=== PATIENT | male | born 1965 | race Caucasian/White ===

== ENCOUNTER 2017-01-06 01:01 | Inpatient (IN) | payer MEDICAID ==
[2017-01-06] MEDS ORDERED: Ketorolac 30 MG/ML SDV IVPUSH ONE (01:05)
[2017-01-06] MEDS ORDERED: Ondansetron 4 MG/2 ML SDV IVPUSH ONE ×2 (01:05→01:41)
[2017-01-06] MEDS ORDERED: Sodium Chloride 0.9% 1,000 ML IV ONE (01:05)
--- NOTE | 2017-01-06 01:07 | EDM.PDOC ---
ED HPI GENERAL MEDICAL PROBLEM - General Chief Complaint: Abdominal Pain Stated Complaint: STOMACH PAIN Time Seen by Provider: 01/06/17 01:07 Source of Information: Reports: Patient - History of Present Illness INITIAL COMMENTS - FREE TEXT/NARRATIVE: HISTORY AND PHYSICAL: History of present illness: [] Patient presents with left lower quadrant pain 8/10 nonradiating Has a history of diverticulitis with microperforation is been treated with a couple of regimens of Bactrim and Flagyl over the last month and has been awaiting colonoscopy, this has not been performed due to the inflammatory process No fever or nausea vomiting or chills sweats Review of systems: As per history of present illness and below otherwise all systems reviewed and negative. Past medical history: As per history of present illness and as reviewed below otherwise noncontributory. Surgical history: As per history of present illness and as reviewed below otherwise noncontributory. Social history: No reported history of drug or alcohol abuse. Family history: As per history of present illness and as reviewed below otherwise noncontributory. Physical exam: HEENT: Atraumatic, normocephalic, pupils reactive, negative for conjunctival pallor or scleral icterus, mucous membranes moist, throat clear, neck supple, nontender, trachea midline. Lungs: Clear to auscultation, breath sounds equal bilaterally, chest nontender. Heart: S1S2, regular, negative for clicks, rubs, or JVD. Abdomen: Soft, nondistended, nontender upper quadrants tenderness to light palpation right and left lower quadrants with guarding no rebound. Negative for masses or hepatosplenomegaly. Negative for costovertebral tenderness. Pelvis: Stable nontender. Genitourinary: Deferred. Rectal: Deferred. Extremities: Atraumatic, negative for cords or calf pain. Neurovascular unremarkable. Neuro: Awake, alert, oriented. Cranial nerves II through XII unremarkable. Cerebellum unremarkable. Motor and sensory unremarkable throughout. Exam nonfocal. Diagnostics: [] Lab as below EKG CT abdomen pelvis with and without contrast Therapeutics: [] Liter normal saline bolus Zofran 8 mg IV Toradol 30 mg IV Morphine 2 mg IV x2 Dilaudid 1 mg IV now Cipro 400 mg IV Normal saline 125 cc per hour Impression: [] Diverticulitis versus inflammatory mass Abdominal pain Leukocytosis Definitive disposition and diagnosis as appropriate pending reevaluation and review of above. ABDOMEN Pain Score (Numeric/FACES): 10 - Related Data Allergies Allergy/AdvReac Type Severity Reaction Status Date / Time No Known Allergies Allergy Verified 01/06/17 01:07 Home Meds: Home Meds LORazepam 1 mg PO BID PRN 01/06/17 [History] Metronidazole [IJD: metroNIDAZOLE] 500 mg PO TID 01/06/17 [History] Sulfamethoxazole/Trimethoprim [Sulfamethoxazole-Tmp Ds Tablet] 1 tab PO BID [History] ED ROS GENERAL - Review of Systems Review Of Systems: ROS reveals no pertinent complaints other than HPI. ED EXAM, GENERAL - Physical Exam Exam: See Below Course - Vital Signs Last Recorded V/S: Last Vital Signs Temp 35.5 C 01/06/17 01:09 Pulse 87 01/06/17 03:01 Resp 17 01/06/17 03:01 BP 124/72 01/06/17 03:01 Pulse Ox 96 01/06/17 03:01 - Orders/Labs/Meds Orders: Active Orders 24 hr Category Date Time Status EKG Documentation Completion [RC] STAT Care 01/06/17 01:05 Active Abdomen Pelvis w wo Cont [CT] Stat Exams 01/06/17 01:06 Taken Abdomen w Cont [CT] Stat Exams 01/06/17 01:05 Stop Req CULTURE BLOOD [BC] Stat Lab 01/06/17 01:32 Received CULTURE BLOOD [BC] Stat Lab 01/06/17 01:36 Received UA W/MICROSCOPIC [URIN] Stat Lab 01/06/17 01:05 Uncollected HYDROmorphone [Dilaudid] Med 01/06/17 03:06 Once 1 mg IVPUSH ONETIME ONE Sodium Chloride 0.9% [Normal Saline] 1,000 ml Med 01/06/17 03:15 Ordered IV STAT Blood Culture x2 Reflex Set [OM.PC] Stat Oth 01/06/17 01:23 Ordered Medication Orders Sodium Chloride (Normal Saline) 1,000 mls @ 125 mls/hr IV STAT ELEAZAR Labs: Laboratory Tests 01/06/17 01/06/17 01/06/17 Range/Units 01:15 01:15 01:15 WBC 13.66 H (4.0-11.0) K/uL RBC 4.93 (4.50-5.90) M/uL Hgb 15.4 (13.0-17.0) g/dL Hct 43.5 (38.0-50.0) % MCV 88.2 (80.0-98.0) fL MCH 31.2 (27.0-32.0) pg MCHC 35.4 (31.0-37.0) g/dL RDW Std Deviation 43.8 (28.0-62.0) fl RDW Coeff of Omar 14 (11.0-15.0) % Plt Count 170 (150-400) K/uL MPV 10.40 (7.40-12.00) fL Neut % (Auto) 75.5 (48.0-80.0) % Lymph % (Auto) 15.4 L (16.0-40.0) % [place] % (Auto) 8.8 (0.0-15.0) % Eos % (Auto) 0.1 (0.0-7.0) % Baso % (Auto) 0.2 (0.0-1.5) % Neut # (Auto) 10.3 H (1.4-5.7) K/uL Lymph # (Auto) 2.1 (0.6-2.4) K/uL [place] # (Auto) 1.2 H (0.0-0.8) K/uL Eos # (Auto) 0.0 (0.0-0.7) K/uL Baso # (Auto) 0.0 (0.0-0.1) K/uL Nucleated RBC % 0.0 /100WBC Nucleated RBCs # 0 K/uL Sodium 136 (136-146) mmol/L Potassium 4.1 (3.5-5.1) mmol/L Chloride 104 (98-110) mmol/L Carbon Dioxide 18 L (21-31) mmol/L BUN 15 (6.0-23.0) mg/dL Creatinine 1.4 (0.6-1.5) mg/dL Est Cr Clr Drug Dosing 70.55 mL/min Estimated GFR (MDRD) 53.4 ml/min Glucose 120 H (60-110) mg/dL Calcium 9.8 (8.8-10.8) mg/dL Total Bilirubin 0.9 (0.1-1.5) mg/dL AST 30 (5-40) IU/L ALT 24 (8-54) IU/L Alkaline Phosphatase 108 (40-150) Troponin I < 0.10 (0.0-0.29) NG/ML Total Protein 7.9 (6.0-8.0) g/dL Albumin 4.4 (3.5-5.0) g/dL Globulin 3.5 (2.0-3.5) g/dL Albumin/Globulin Ratio 1.3 (1.3-2.8) Amylase 21 (10-90) U/L Lipase 18 (7-80) U/L Meds: Medications Generic Name Dose Route Start Last Admin Trade Name Freq PRN Reason Stop Dose Admin Sodium Chloride 1,000 mls @ 125 mls/hr 01/06/17 03:15 Normal Saline IV STAT ELEAZAR Discontinued Medications Generic Name Dose Route Start Last Admin Trade Name Freq PRN Reason Stop Dose Admin Sodium Chloride 1,000 mls @ 999 mls/hr 01/06/17 01:05 01/06/17 01:39 Normal Saline IV 01/06/17 02:05 999 mls/hr STAT ONE Administration Ketorolac Tromethamine 30 mg 01/06/17 01:05 01/06/17 03:02 Toradol IVPUSH 01/06/17 01:06 Not Given ONETIME ONE Morphine Sulfate 2 mg 01/06/17 01:12 01/06/17 01:40 Morphine IVPUSH 01/06/17 01:13 2 mg ONETIME ONE Administration Morphine Sulfate 2 mg 01/06/17 02:38 01/06/17 02:42 Morphine IVPUSH 01/06/17 02:39 2 mg ONETIME ONE Administration Ondansetron HCl 8 mg 01/06/17 01:05 01/06/17 03:02 Zofran IVPUSH 01/06/17 01:06 Not Given ONETIME ONE Ondansetron HCl 8 mg 01/06/17 01:41 01/06/17 01:42 Zofran IVPUSH 01/06/17 01:42 8 mg STAT ONE Administration Departure - Departure Time of Disposition: 03:10 Disposition: Home, Self-Care 01 Condition: poor Clinical Impression: Abdominal pain - Discharge Information Forms: ED Department Discharge - My Orders Last 24 Hours: My Active Orders 01/06/17 01:05 EKG Documentation Completion [RC] STAT Abdomen w Cont [CT] Stat UA W/MICROSCOPIC [URIN] Stat 01/06/17 01:06 Abdomen Pelvis w wo Cont [CT] Stat 01/06/17 01:23 Blood Culture x2 Reflex Set [OM.PC] Stat 01/06/17 01:32 CULTURE BLOOD [BC] Stat 01/06/17 01:36 CULTURE BLOOD [BC] Stat 01/06/17 03:06 HYDROmorphone [Dilaudid] 1 mg IVPUSH ONETIME ONE 01/06/17 03:15 Sodium Chloride 0.9% [Normal Saline] 1,000 ml IV STAT - Assessment/Plan Last 24 Hours: My Active Orders 01/06/17 01:05 EKG Documentation Completion [RC] STAT Abdomen w Cont [CT] Stat UA W/MICROSCOPIC [URIN] Stat 01/06/17 01:06 Abdomen Pelvis w wo Cont [CT] Stat 01/06/17 01:23 Blood Culture x2 Reflex Set [OM.PC] Stat 01/06/17 01:32 CULTURE BLOOD [BC] Stat 01/06/17 01:36 CULTURE BLOOD [BC] Stat 01/06/17 03:06 HYDROmorphone [Dilaudid] 1 mg IVPUSH ONETIME ONE 01/06/17 03:15 Sodium Chloride 0.9% [Normal Saline] 1,000 ml IV STAT
[2017-01-06] MEDS ORDERED: Morphine 2 MG/ML Syringe IVPUSH ONE ×2 (01:12→02:38)
[2017-01-06] MEDS ORDERED: HYDROmorphone 2 MG/ML Syringe IVPUSH ONE (03:06)
[2017-01-06] MEDS ORDERED: Sodium Chloride 0.9% 1,000 ML IV SCH (03:15)
[2017-01-06] MEDS ORDERED: Ciprofloxacin in D5W 400 MG in Premix Bag 1 BAG IV STA ×2 (03:16)
[2017-01-06] MEDS ORDERED: Ondansetron 4 MG/2 ML SDV IVPUSH PRN (03:48)
[2017-01-06] MEDS ORDERED: Morphine 2 MG/ML Syringe IVPUSH PRN (03:48)
[2017-01-06] MEDS ORDERED: LORazepam 1 MG Tab PO PRN (03:56)
[2017-01-06] MEDS: Piperacillin/Tazobactam 3.375 GM in Sodium Chloride 0.9% 50 ML IV SCH ×4 (05:03→21:50)
[2017-01-06] MEDS ORDERED: Iopamidol 755 MG/ML 500 ML Multipack Bottle IVPUSH STA (06:36)
[2017-01-06] MEDS: HYDROmorphone 1 MG/ML Syringe IVPUSH PRN ×9 (07:25→23:55)
--- NOTE | 2017-01-06 08:29 | PCM.HP ---
H&P History of Present Illness - General Date of Service: 01/06/17 Admit Problem/Dx: Admission Diagnosis/Problem Admission Diagnosis/Problem Abdominal pain Source of Information: Patient History Limitations: Reports: No Limitations - History of Present Illness Initial Comments - Free Text/Narative: This 51 year old male with pmh of diverticulosis, diagnosed a couple years ago presented to the ED with severe abdominal pain that has been going on for about 1 month, but has since progressively worsened over the last 1-2 days. He reports being treated for diverticulitis with Bactrim and Flagyl over the last 2 weeks, with no complete recovery. Since diagnosis 2 years ago he has had about 1/2 dozen flares some with perforations. He has never had a colonscopy and has been seeing a surgeon at home in [place], they will not do one until inflammation and acute diverticulitis has resolved. He reports being more constipated feeling, last BM 2 days ago. There has been blood in is stools. No N /V, but 7/10 pain to LLQ. He feels bloated and distended. Not eating helps the pain somewhat, but otherwise there is no relieving factors. He does not smoke, but chews 1/2 tin of chew daily, rare alcohol use and no recreational drug use. He denies any family history of colon cancers or any cancer he can think of. In the ED leukocytosis noted at 13,660. BMP WNL, except BS slightly elevated at 130s. CT of abdomen reported "circumferential thickening and pericolonic strading of the sigmoid colon, may represent diverticulitis, howevere, additional etiologis for coloitis or inflammatory mass or not excluded from this study, mild adjacent lymphadenopathy is present" Radiologist recommends endoscopy with clinically appropriate. He was placed on Zosyn and admitted for acute sigmoid diverticulitis. PCP in [place]. ABDOMEN Pain Score (Numeric/FACES): 10 - Related Data Allergies/Adverse Reactions: Allergies Allergy/AdvReac Type Severity Reaction Status Date / Time No Known Allergies Allergy Verified 01/06/17 01:07 Home Medications: Home Meds LORazepam 1 mg PO BID PRN 01/06/17 [History] Metronidazole [IJD: metroNIDAZOLE] 500 mg PO TID 01/06/17 [History] Sulfamethoxazole/Trimethoprim [Sulfamethoxazole-Tmp Ds Tablet] 1 tab PO BID [History] Past Medical History - Past Health History Medical/Surgical History: Denies Medical/Surgical History HEENT History: Reports: Impaired Vision Other HEENT History: wears glasses Cardiovascular History: Reports: None. Denies: Blood Clots/VTE/DVT, CAD, Heart Failure, High Cholesterol, Hypertension, NM Respiratory History: Reports: None. Denies: COPD, PE Gastrointestinal History: Reports: Diverticulosis, Hiatal Hernia, Other (See Below) Other Gastrointestinal History: Hx of 2 perforations in colon Genitourinary History: Reports: None. Denies: Acute Renal Failure, Chronic Renal Insuffiency Psychiatric History: Reports: Anxiety Endocrine/Metabolic History: Reports: None. Denies: Diabetes, Type II, Hypothyroidism, Obesity/BMI 30+ - Past Surgical History HEENT Surgical History: Reports: None GI Surgical History: Reports: None Social & Family History - Family History Family Medical History: Noncontributory GI: Denies: Diverticulitis, GI bleed Oncologic: Reports: None. Denies: Colon - Tobacco Use Smoking Status *Q: Never Smoker Second Hand Smoke Exposure: Yes - Caffeine Use Caffeine Use: Reports: Coffee Other Caffeine Use: Decaff. coffee 1-2 cups/day - Recreational Drug Use Recreational Drug Use: No H&P Review of Systems - Review of Systems: Review Of Systems: See Below HEENT: Reports: No Symptoms. Denies: Headaches, Sinus Congestion, Sore Throat, Visual Changes Pulmonary: Reports: No Symptoms. Denies: Shortness of Breath, Wheezing, Cough, Sputum Cardiovascular: Reports: No Symptoms. Denies: Chest Pain, Palpitations, Dyspnea on Exertion, Edema Gastrointestinal: Reports: Abdominal Pain (LLQ), Bloody Stool, Constipation, Distension, Nausea. Denies: Vomiting Genitourinary: Reports: No Symptoms. Denies: Dysuria, Frequency, Burning, Incontinence, Retention Musculoskeletal: Reports: No Symptoms Skin: Reports: No Symptoms Psychiatric: Reports: No Symptoms Neurological: Reports: No Symptoms Hematologic/Lymphatic: Reports: No Symptoms Immunologic: Reports: No Symptoms Exam - Exam Exam: See Below - Vital Signs Vital Signs: Last Vital Signs Temp 98 F 01/06/17 04:00 Pulse 93 01/06/17 04:00 Resp 18 01/06/17 04:00 BP 120/75 01/06/17 04:00 Pulse Ox 94 L 01/06/17 04:00 Weight: 89.4 kg - Exam Quality Assessment: DVT Prophylaxis. No: Supplemental Oxygen General: Alert, Oriented, Cooperative HEENT: Mucosa Moist & [place], Posterior Pharynx Clear Neck: Supple, Trachea Midline, 2 Lungs: Clear to Auscultation, Normal Respiratory Effort Cardiovascular: Regular Rate, Regular Rhythm Abdomen: Normal Bowel Sounds, Soft, Distention, Tenderness (Pain to LLQ with palpation) Extremities: Normal Inspection, Normal Pulses Neuro Extensive - Mental Status: Alert, Oriented x3 Neuro Extensive - Motor, Sensory, Reflexes: CN II-XII Intact Psychiatric: Alert, Normal Affect, Normal Mood - Patient Data Lab Results last 24 hrs: Laboratory Results - last 24 hr 01/06/17 01/06/17 01/06/17 Range/Units 04:27 04:27 04:30 WBC 9.64 (4.0-11.0) K/uL RBC 4.47 L (4.50-5.90) M/uL Hgb 13.7 (13.0-17.0) g/dL Hct 40.0 (38.0-50.0) % MCV 89.5 (80.0-98.0) fL MCH 30.6 (27.0-32.0) pg MCHC 34.3 (31.0-37.0) g/dL RDW Std Deviation 44.3 (28.0-62.0) fl RDW Coeff of Omar 14 (11.0-15.0) % Plt Count 145 L (150-400) K/uL MPV 10.50 (7.40-12.00) fL Neut % (Auto) 71.0 (48.0-80.0) % Lymph % (Auto) 19.3 (16.0-40.0) % [place] % (Auto) 9.0 (0.0-15.0) % Eos % (Auto) 0.4 (0.0-7.0) % Baso % (Auto) 0.3 (0.0-1.5) % Neut # (Auto) 6.8 H (1.4-5.7) K/uL Lymph # (Auto) 1.9 (0.6-2.4) K/uL [place] # (Auto) 0.9 H (0.0-0.8) K/uL Eos # (Auto) 0.0 (0.0-0.7) K/uL Baso # (Auto) 0.0 (0.0-0.1) K/uL Nucleated RBC % 0.0 /100WBC Nucleated RBCs # 0 K/uL Sodium 138 (136-146) mmol/L Potassium 4.0 (3.5-5.1) mmol/L Chloride 106 (98-110) mmol/L Carbon Dioxide 21 (21-31) mmol/L BUN 15 (6.0-23.0) mg/dL Creatinine 1.4 (0.6-1.5) mg/dL Est Cr Clr Drug Dosing 70.55 mL/min Estimated GFR (MDRD) 53.4 ml/min Glucose 138 H (60-110) mg/dL Calcium 8.5 L (8.8-10.8) mg/dL Urine Color YELLOW Urine Appearance CLEAR Urine pH 5.5 (5.0-8.0) Ur Specific [place] 1.010 (1.001-1.035) Urine Protein NEGATIVE (NEGATIVE) mg/dL Urine Glucose (UA) NEGATIVE (NEGATIVE) mg/dL Urine Ketones 15 H (NEGATIVE) mg/dL Urine Occult Blood NEGATIVE (NEGATIVE) Urine Nitrite NEGATIVE (NEGATIVE) Urine Bilirubin NEGATIVE (NEGATIVE) Urine Urobilinogen 0.2 (<2.0) EU/dL Ur Leukocyte Esterase NEGATIVE (NEGATIVE) Urine RBC 0-1 (0-2/HPF) Urine WBC NONE SEEN (0-5/HPF) Ur Epithelial Cells FEW (NONE-FEW) Urine Bacteria FEW (NEGATIVE) Result Diagrams: 01/06/17 04:27 01/06/17 04:27 *Q Meaningful Use (ADM) - VTE *Q VTE Criteria *Q: - Stroke *Q Stroke Criteria *Q: - AMI *Q AMI Criteria *Q: - Problem List (1) Diverticulitis SNOMED Code(s): 473987426 ICD Code: K57.92 - DVTRCLI OF INTEST, PART UNSP, W/O PERF OR ABSCESS W/O BLEED Status: Acute Current Visit: Yes Qualifiers: Diverticulitis site: large intestine Diverticulitis bleeding: with bleeding Diverticulitis complication: without perforation or abscess Qualified Code(s): K57.33 - Diverticulitis of large intestine without perforation or abscess with bleeding Problem List Initiated/Reviewed/Updated: Yes Orders Last 24hrs: Active Orders 24 hr Category Date Time Status Nothing per Oral Now Diet [DIET] Diet 01/06/17 Breakfast Active HYDROmorphone [Dilaudid] Med 01/06/17 05:33 Active 1 mg IVPUSH Q2H PRN LORazepam [Ativan] Med 01/06/17 03:56 Active 1 mg PO BID PRN Ondansetron [Zofran] Med 01/06/17 03:48 Active 4 mg IVPUSH Q4H PRN Piperacillin/Tazobactam [Piperacil-Tazobact] 3.375 gm Med 01/06/17 04:00 Active Sodium Chloride 0.9% [Normal Saline] 50 ml IV Q6H Sodium Chloride 0.9% [Normal Saline] 1,000 ml Med 01/06/17 04:00 Active IV ASDIRECTED Medication Orders Hydromorphone HCl (Dilaudid) 1 mg IVPUSH Q2H PRN PRN Reason: Abdominal Pain Last Admin: 01/06/17 07:25 Dose: 1 mg Piperacillin Sod/Tazobactam (Sod 3.375 gm/ Sodium Chloride) 50 mls @ 100 mls/ hr IV Q6H ELEAZAR Last Admin: 01/06/17 05:03 Dose: 100 mls/hr Sodium Chloride (Normal Saline) 1,000 mls @ 125 mls/hr IV ASDIRECTED ELEAZAR Lorazepam (Ativan) 1 mg PO BID PRN PRN Reason: Anxiety Ondansetron HCl (Zofran) 4 mg IVPUSH Q4H PRN PRN Reason: Nausea/Vomiting Assessment/Plan Comment:: This 51 year old male admitted with recurrent diverticulitis 1. Acute sigmoid diverticulitis: Continue Zosyn for now, has failed outpatient for past couple months on Flagyl and Bactrim. Consult Dr. Najera, general surgery. Will order stool studies and hemoccult. He does report blood in stools at home. Continue bowel rest and IVFDs. Monitor Leukocytosis. Dilaudid for pain PRN. Zofran PRN nausea. Will need to arrange outpatient follow up with colonoscopy. VTE prophylaxis: SCDs only
[2017-01-06] MEDS: Sodium Chloride 0.9% 1,000 ML IV SCH ×2 (12:29→21:02)
--- NOTE | 2017-01-06 13:10 | CT ---
EXAM DATE: 01/06/17 PATIENT'S AGE: 51 Patient: FRANKY BE Facility: [place], [place] Site . Site : [id number] Study: CT Abdomen/Pelvis [id number]/26/2017 2:17:23 AM Ordering Physician: Doctor Presley Final Report: INDICATION: Abdominal pain. History of colon perforation 3 weeks ago. TECHNIQUE: CT abdomen and pelvis acquired without and with 75 mL of Isovue 370 IV contrast. COMPARISON: None available. FINDINGS: Lower chest: Unremarkable. Liver: Unremarkable. Spleen: Unremarkable. Pancreas: Unremarkable. Gallbladder and bile ducts: Unremarkable. Kidneys: Unremarkable. Adrenal glands: Unremarkable. GI tract: There is circumferential thickening and pericolonic stranding involving the sigmoid colon, for example as seen on axial image 122 of series 301. Mild adjacent lymph nodes, for example as seen on image 108. Mild sigmoid diverticula are likely present but not well defined. Trace pelvic free fluid. No evidence of abscess. No free intraperitoneal gas. No bowel obstruction. Normal appendix. Vascular structures: Unremarkable. Lymph nodes: Unremarkable. Pelvic Organs: Unremarkable. Bones: No acute abnormality. IMPRESSION: Circumferential thickening and pericolonic stranding of the sigmoid colon may represent diverticulitis, however, additional etiologies for colitis or inflammatory mass are not excluded on the basis of this study. Mild adjacent lymphadenopathy is present. Further evaluation with endoscopy is recommended when clinically appropriate. Small amount of pelvic free fluid. No evidence of abscess or perforation. Dictated by Thad Sánchez MD @ 01/06/2017 2:38:58 AM Dictated by: Thad Sánchez MD @ 01/06/2017 02:39:35 (Electronic Signature) Report Signed by Proxy. [facility] CENTERMehdi
--- NOTE | 2017-01-06 18:27 | PCM.CONS ---
H&P History of Present Illness - General Date of Service: 01/06/17 Admit Problem/Dx: Admission Diagnosis/Problem Admission Diagnosis/Problem Abdominal pain Source of Information: Patient History Limitations: Reports: No Limitations - History of Present Illness Initial Comments - Free Text/Narative: Patient is a 51 year old male with a history of diverticulitis. This has been a chronic issue for him for the past 2 years. He has been on care home antibiotics (Bactrim and flagyl) and a special low residue diet. He is currently being managed by s surgeon in [place]. He came to [place] this weekend to visit his MRIs. He a cheeseburger after which she developed sharp severe lower abdominal pain worse than he had experienced before. He was seen in emergency room and had a CT performed which showed "Circumferential thickening and pericolonic stranding of the sigmoid colon may represent diverticulitis, however, additional etiologies for colitis or inflammatory mass are not excluded on the basis of this study. Mild adjacent lymphadenopathy is present. Further evaluation with endoscopy is recommended when clinically appropriate. Small amount of pelvic free fluid. No evidence of abscess or perforation." The patient has never had a colonoscopy because he gets recurrent attacks. He was admitted to the hospitalist team and started on Zosyn. His pain is mainly located in the suprapubic region. It is control room tender but is not getting worse. He complains of fever, chills, and diaphoresis. He denies any nausea or vomiting. He's been more constipated over the last several days. Denies denies any blood in his stool. His white count on admission was 13,000 and on recheck has come down to and 9000. His vitals have been stable throughout the day with no evidence of fever. ABDOMEN Pain Score (Numeric/FACES): 10 - Related Data Allergies/Adverse Reactions: Allergies Allergy/AdvReac Type Severity Reaction Status Date / Time No Known Allergies Allergy Verified 01/06/17 01:07 Home Medications: Home Meds LORazepam 1 mg PO BID PRN 01/06/17 [History] Metronidazole [IJD: metroNIDAZOLE] 500 mg PO TID 01/06/17 [History] Sulfamethoxazole/Trimethoprim [Sulfamethoxazole-Tmp Ds Tablet] 1 tab PO BID [History] Past Medical History - Past Health History Medical/Surgical History: Denies Medical/Surgical History HEENT History: Reports: Impaired Vision Other HEENT History: wears glasses Cardiovascular History: Reports: None. Denies: Blood Clots/VTE/DVT, CAD, Heart Failure, High Cholesterol, Hypertension, HI Respiratory History: Reports: None. Denies: COPD, PE Gastrointestinal History: Reports: Diverticulosis, Hiatal Hernia, Other (See Below) Other Gastrointestinal History: Hx of 2 perforations in colon Genitourinary History: Reports: None. Denies: Acute Renal Failure, Chronic Renal Insuffiency Psychiatric History: Reports: Anxiety Endocrine/Metabolic History: Reports: None. Denies: Diabetes, Type II, Hypothyroidism, Obesity/BMI 30+ - Past Surgical History HEENT Surgical History: Reports: None GI Surgical History: Reports: None Other Surgical History Comment: Carpal tunnel, scope of the knee, EGD Social & Family History - Family History Family Medical History: Noncontributory GI: Denies: Diverticulitis, GI bleed Oncologic: Reports: None. Denies: Colon - Tobacco Use Smoking Status *Q: Never Smoker Second Hand Smoke Exposure: Yes - Caffeine Use Caffeine Use: Reports: Coffee Other Caffeine Use: Decaff. coffee 1-2 cups/day - Recreational Drug Use Recreational Drug Use: No H&P Review of Systems - Review of Systems: Review Of Systems: See Below General: Reports: Fever, Chills, Malaise, Diaphoresis Pulmonary: Reports: No Symptoms Cardiovascular: Reports: No Symptoms Gastrointestinal: Reports: Abdominal Pain, Decreased Appetite Exam - Exam Exam: See Below - Vital Signs Vital Signs: Last Vital Signs Temp 37.1 C 01/06/17 14:48 Pulse 75 01/06/17 14:48 Resp 20 01/06/17 14:48 BP 99/55 L 01/06/17 14:48 Pulse Ox 95 01/06/17 14:48 Weight: 89.4 kg - Exam General: Alert, Oriented HEENT: Conjunctiva Clear, Mucosa Moist & [place], Nares Patent, Pupils Equal, Pupils Reactive Neck: Supple Lungs: Clear to Auscultation, Normal Respiratory Effort Cardiovascular: Regular Rate, Regular Rhythm Abdomen: Other (Pain over suprapubic area with even light palpation. No evidence of peritonitis, rebound or guarding in the other areas of the abdomen to suggest an acute abdomen. Soft and non-tender everywhere else. ) Rectal (Males) Exam: Deferred - Patient Data Lab Results last 24 hrs: Laboratory Results - last 24 hr 01/06/17 01/06/17 01/06/17 Range/Units 04:27 04:27 04:30 WBC 9.64 (4.0-11.0) K/uL RBC 4.47 L (4.50-5.90) M/uL Hgb 13.7 (13.0-17.0) g/dL Hct 40.0 (38.0-50.0) % MCV 89.5 (80.0-98.0) fL MCH 30.6 (27.0-32.0) pg MCHC 34.3 (31.0-37.0) g/dL RDW Std Deviation 44.3 (28.0-62.0) fl RDW Coeff of Omar 14 (11.0-15.0) % Plt Count 145 L (150-400) K/uL MPV 10.50 (7.40-12.00) fL Neut % (Auto) 71.0 (48.0-80.0) % Lymph % (Auto) 19.3 (16.0-40.0) % [place] % (Auto) 9.0 (0.0-15.0) % Eos % (Auto) 0.4 (0.0-7.0) % Baso % (Auto) 0.3 (0.0-1.5) % Neut # (Auto) 6.8 H (1.4-5.7) K/uL Lymph # (Auto) 1.9 (0.6-2.4) K/uL [place] # (Auto) 0.9 H (0.0-0.8) K/uL Eos # (Auto) 0.0 (0.0-0.7) K/uL Baso # (Auto) 0.0 (0.0-0.1) K/uL Nucleated RBC % 0.0 /100WBC Nucleated RBCs # 0 K/uL Sodium 138 (136-146) mmol/L Potassium 4.0 (3.5-5.1) mmol/L Chloride 106 (98-110) mmol/L Carbon Dioxide 21 (21-31) mmol/L BUN 15 (6.0-23.0) mg/dL Creatinine 1.4 (0.6-1.5) mg/dL Est Cr Clr Drug Dosing 70.55 mL/min Estimated GFR (MDRD) 53.4 ml/min Glucose 138 H (60-110) mg/dL Calcium 8.5 L (8.8-10.8) mg/dL Urine Color YELLOW Urine Appearance CLEAR Urine pH 5.5 (5.0-8.0) Ur Specific [place] 1.010 (1.001-1.035) Urine Protein NEGATIVE (NEGATIVE) mg/dL Urine Glucose (UA) NEGATIVE (NEGATIVE) mg/dL Urine Ketones 15 H (NEGATIVE) mg/dL Urine Occult Blood NEGATIVE (NEGATIVE) Urine Nitrite NEGATIVE (NEGATIVE) Urine Bilirubin NEGATIVE (NEGATIVE) Urine Urobilinogen 0.2 (<2.0) EU/dL Ur Leukocyte Esterase NEGATIVE (NEGATIVE) Urine RBC 0-1 (0-2/HPF) Urine WBC NONE SEEN (0-5/HPF) Ur Epithelial Cells FEW (NONE-FEW) Urine Bacteria FEW (NEGATIVE) Result Diagrams: 01/06/17 04:27 01/06/17 04:27 Consult PN Assessment/Plan (1) Diverticulitis SNOMED Code(s): 707288119 Code(s): K57.92 - DVTRCLI OF INTEST, PART UNSP, W/O PERF OR ABSCESS W/O BLEED Current Visit: Yes Qualifiers: Diverticulitis site: large intestine Diverticulitis bleeding: with bleeding Diverticulitis complication: without perforation or abscess Qualified Code(s): K57.33 - Diverticulitis of large intestine without perforation or abscess with bleeding Problem List Initiated/Reviewed/Updated: Yes Plan: Patient is improving and his pain is limited to the area that corresponds with his thickened colon on CT. I would keep the patient on Zosyn for the evening and transition him in the morning to oral Cipro and Flagyl. He should be sent home on this for a minimum of 2 weeks. I explained to the patient that even if he cannot have a colonoscopy he may be candidate for barium enema to better evaluate the colon and help with operative planning. He denies any complications from his diverticulitis including pneumaturia or bladder infections. If we can control this infection with oral antibiotics, he should follow up as soon as possible with his primary surgeon at home to discuss operative planning. I would advance his diet in the morning to clears. Then if tolerated a regular diet by evening. Should he develop any worsening of his clinical status or abdominal exam I will reassess him. Will continue to follow this patient until discharge Call with Any questions or concerns.
[2017-01-06] MEDS ORDERED: Pantoprazole 40 MG in Sodium Chloride 0.9% 10 ML IVPUSH ONE (19:46)
[2017-01-07] MEDS: HYDROmorphone 1 MG/ML Syringe IVPUSH PRN ×5 (02:01→10:12)
[2017-01-07] MEDS: Piperacillin/Tazobactam 3.375 GM in Sodium Chloride 0.9% 50 ML IV SCH ×2 (04:14→09:37)
[2017-01-07] MEDS: Sodium Chloride 0.9% 1,000 ML IV SCH (05:33)
[2017-01-07 06:29] LABS: CHLORIDE,CL 108 mmol/L (98-110); SODIUM,NA 139 mmol/L (136-146)
--- NOTE | 2017-01-07 09:16 | PCM.SN ---
- Free Text/Narrative Note: Patient is doing very well this am. Subjectively he feels better and can now touch his lower abdomen with no pain. He was afebrile overnight and vitals were stable. His WBC and neutrophil count are within normal limits. On exam his abdomen is much softer with little to no pain in the suprapubic area. From my standpoint he can transition to oral antibiotics which he should take for two weeks. Advance diet as tolerated. Should have follow up with his primary surgeon and PCP in [place] in 1-2 weeks. Will sign off. Call with any questions or concerns.
[2017-01-07] MEDS ORDERED: Levofloxacin 500 MG Tab PO ONE (11:01)
[2017-01-07] MEDS ORDERED: oxyCODONE 5 MG Tab PO PRN ×2 (11:05→13:59)
[2017-01-07] MEDS ORDERED: Omeprazole 20 MG Cap.CR PO SCH (11:15)
[2017-01-07] MEDS ORDERED: metroNIDAZOLE 250 MG Tab PO SCH (11:15)
--- NOTE | 2017-01-07 11:50 | PCM.PN ---
Addendum entered and electronically signed by Cong Denny MD 01/07/17 19:38: Was informed by nurses that patient was not happy with his care. He had full liquid diet for lunch which he stated did not seem go well. He did not agree with advancing diet and switching antibiotics from IV to PO. He stated he would like to see his own surgeon in [place]. Nursing contacted Dr. Johnson who instructed them to inform the patient that he does not agree with patient being discharged. Patient signed out AMA. Original Note: <Cong Denny - Last Filed: 01/07/17 11:45> - General Info Date of Service: 01/07/17 Admission Dx/Problem (Free Text): Admission Diagnosis/Problem Admission Diagnosis/Problem Abdominal pain Subjective Update: Patient still complaining of lower abdominal pain 01/21. States he has not moved out of bed or had a single thing to eat. He is worried if he is discharged he will end up coming right back because that has happened to him in the past. Functional Status: Denies: pain controlled, tolerating diet, ambulating - Review of Systems General: Reports: Weakness, Malaise, Appetite HEENT: Reports: no symptoms Pulmonary: Reports: no symptoms Cardiovascular: Reports: No Symptoms Gastrointestinal: Reports: Abdominal pain, Nausea Genitourinary: Reports: no symptoms Musculoskeletal: Reports: no symptoms Skin: Reports: no symptoms Neurological: Reports: No Symptoms Psychiatric: Reports: no symptoms - Patient Data Vitals - most recent: Last Vital Signs Temp 36.6 C 01/07/17 08:00 Pulse 94 01/07/17 08:00 Resp 18 01/07/17 08:00 BP 132/67 01/07/17 08:00 Pulse Ox 95 01/07/17 08:00 Weight - most recent: 89.4 kg I&O - last 24 hours: Intake & Output 01/06/17 01/07/17 01/07/17 22:59 06:59 14:59 Intake Total 2404 874 Output Total 570 750 Balance 1834 124 Lab Results last 24 hrs: Laboratory Results - last 24 hr 01/07/17 01/07/17 Range/Units 05:52 05:52 WBC 9.42 (4.0-11.0) K/uL RBC 4.34 L (4.50-5.90) M/uL Hgb 13.2 (13.0-17.0) g/dL Hct 39.2 (38.0-50.0) % MCV 90.3 (80.0-98.0) fL MCH 30.4 (27.0-32.0) pg MCHC 33.7 (31.0-37.0) g/dL RDW Std Deviation 45.2 (28.0-62.0) fl RDW Coeff of Omar 14 (11.0-15.0) % Plt Count 135 L (150-400) K/uL MPV 10.30 (7.40-12.00) fL Neut % (Auto) 71.0 (48.0-80.0) % Lymph % (Auto) 16.5 (16.0-40.0) % [place] % (Auto) 10.6 (0.0-15.0) % Eos % (Auto) 1.6 (0.0-7.0) % Baso % (Auto) 0.3 (0.0-1.5) % Neut # (Auto) 6.7 H (1.4-5.7) K/uL Lymph # (Auto) 1.6 (0.6-2.4) K/uL [place] # (Auto) 1.0 H (0.0-0.8) K/uL Eos # (Auto) 0.2 (0.0-0.7) K/uL Baso # (Auto) 0.0 (0.0-0.1) K/uL Nucleated RBC % 0.0 /100WBC Nucleated RBCs # 0 K/uL Sodium 139 (136-146) mmol/L Potassium 4.3 (3.5-5.1) mmol/L Chloride 108 (98-110) mmol/L Carbon Dioxide 20 L (21-31) mmol/L BUN 13 (6.0-23.0) mg/dL Creatinine 1.1 (0.6-1.5) mg/dL Est Cr Clr Drug Dosing 89.79 mL/min Estimated GFR (MDRD) > 60.0 ml/min Glucose 75 (60-110) mg/dL Calcium 8.4 L (8.8-10.8) mg/dL Med Orders - Current: Current Medications Acetaminophen (Tylenol) 650 mg PO Q6H PRN PRN Reason: Pain Levofloxacin (Levaquin) 750 mg PO Q24H [facility] Stop: 01/22/17 09:01 Lorazepam (Ativan) 1 mg PO BID PRN PRN Reason: Anxiety Metronidazole (Metronidazole) 500 mg PO Q6H [facility] Stop: 01/21/17 11:16 Omeprazole (Omeprazole) 40 mg PO DAILY [facility] Ondansetron HCl (Zofran) 4 mg IVPUSH Q4H PRN PRN Reason: Nausea/Vomiting Oxycodone HCl (Oxycodone) 5 mg PO Q6H PRN PRN Reason: Abdominal Pain Discontinued Medications Hydromorphone HCl (Dilaudid) 1 mg IVPUSH ONETIME ONE Stop: 01/06/17 03:07 Last Admin: 01/06/17 03:14 Dose: 1 mg Hydromorphone HCl (Dilaudid) 1 mg IVPUSH Q2H PRN PRN Reason: Abdominal Pain Last Admin: 01/07/17 10:12 Dose: 1 mg Sodium Chloride (Normal Saline) 1,000 mls @ 999 mls/hr IV STAT ONE Stop: 01/06/17 02:05 Last Admin: 01/06/17 01:39 Dose: 999 mls/hr Sodium Chloride (Normal Saline) 1,000 mls @ 125 mls/hr IV STAT [facility] Last Admin: 01/06/17 03:12 Dose: 125 mls/hr Ciprofloxacin/Dextrose 400 mg/ (Premix) 200 mls @ 200 mls/hr IV NOW [facility] Stop: 01/06/17 04:15 Last Admin: 01/06/17 03:22 Dose: 200 mls/hr Piperacillin Sod/Tazobactam (Sod 3.375 gm/ Sodium Chloride) 50 mls @ 100 mls/ hr IV Q6H [facility] Last Admin: 01/07/17 09:37 Dose: 100 mls/hr Sodium Chloride (Normal Saline) 1,000 mls @ 125 mls/hr IV ASDIRECTED [facility] Last Admin: 01/07/17 05:33 Dose: 125 mls/hr Pantoprazole Sodium 40 mg/ (Sodium Chloride) 10 mls @ 300 mls/hr IVPUSH NOW ONE Stop: 01/06/17 19:47 Last Admin: 01/06/17 22:29 Dose: 300 mls/hr Iopamidol (Isovue Multipack-370 (76%)) 75 ml IVPUSH ONETIME STA Stop: 01/06/17 06:37 Last Admin: 01/06/17 06:37 Dose: 75 ml Ketorolac Tromethamine (Toradol) 30 mg IVPUSH ONETIME ONE Stop: 01/06/17 01:06 Last Admin: 01/06/17 03:02 Dose: Not Given Levofloxacin (Levaquin) 750 mg PO Q24H ONE Stop: 01/07/17 11:02 Morphine Sulfate (Morphine) 2 mg IVPUSH ONETIME ONE Stop: 01/06/17 01:13 Last Admin: 01/06/17 01:40 Dose: 2 mg Morphine Sulfate (Morphine) 2 mg IVPUSH ONETIME ONE Stop: 01/06/17 02:39 Last Admin: 01/06/17 02:42 Dose: 2 mg Morphine Sulfate (Morphine) 2 mg IVPUSH Q2H PRN PRN Reason: Abdominal Pain Ondansetron HCl (Zofran) 8 mg IVPUSH ONETIME ONE Stop: 01/06/17 01:06 Last Admin: 01/06/17 03:02 Dose: Not Given Ondansetron HCl (Zofran) 8 mg IVPUSH STAT ONE Stop: 01/06/17 01:42 Last Admin: 01/06/17 01:42 Dose: 8 mg - Exam General: alert, oriented, cooperative, moderate distress HEENT: Pupils equal, Pupils reactive Neck: supple Lungs: Clear to auscultation, Normal respiratory effort Cardiovascular: Regular Rate, Regular Rhythm Abdomen: bowel sounds present, rigidity, tenderness. No: rebound, guarding, distension Extremities: no edema Skin: intact Neurological: no new focal deficit Psy/Mental Status: alert, normal affect, normal mood - Problem List Review Problem List Initiated/Reviewed/Updated: Yes - My Orders Last 24 Hours: My Active Orders 01/07/17 11:05 oxyCODONE 5 mg PO Q6H PRN 01/07/17 11:15 Omeprazole 40 mg PO DAILY metroNIDAZOLE 500 mg PO Q6H 01/07/17 15:00 Acetaminophen [Tylenol] 650 mg PO Q6H PRN 01/07/17 Lunch Full Liquid Diet [DIET] 01/08/17 09:00 Levofloxacin [Levaquin] 750 mg PO Q24H - Plan Plan:: Assessment: This 51 year old male admitted with history of recurrent diverticulitis admitted with Acute sigmoid diverticulitis. Patient is from [place] and was visiting family here. He was seen by surgery who recommended advancing diet, transitioning him to PO antibiotics which he will need for 2 weeks and close f/u with PCP and Colorectal surgeon. We considered discharge today however patient states that he is still having pain, he does not have PCP here and whenever he informed me that has been discharged early in the past and he usually ends up returning to the hospital bc of pain. Plan: 1. Advance to full liquid diet for lunch, soft diet for supper, regular diet as tolerated for breakfast tomorrow 2. DC Zosyn 3. start Flagyl 500 mg PO q6 hours and Levaquin 750 mg PO daily 4. DC Dilautid 5. start Oxycodone 5 mg PO q6 hours - start @ 1100 6. start Acetaminophen 650 mg PO q6 hours PRN for pain - start @1500 7. Encourage ambulation and movement 8. Patient will need to arrange PCP in [place] as he sanders not have one there and he will be heading there as soon a he is discharged 9. VTE prophylaxis: SCDs only 10. anticipate discharge tomorrow <Adin Johnson - Last Filed: 01/08/17 10:36> - Patient Data Vitals - most recent: Last Vital Signs Temp 36.7 C 01/07/17 16:00 Pulse 85 01/07/17 16:00 Resp 16 01/07/17 16:00 BP 156/79 H 01/07/17 16:00 Pulse Ox 97 01/07/17 16:00 I&O - last 24 hours: Intake & Output 01/07/17 01/08/17 01/08/17 22:59 06:59 14:59 Intake Total 1000 Output Total 1500 Balance -500 Med Orders - Current: Current Medications Discontinued Medications Acetaminophen (Tylenol) 650 mg PO Q6H PRN PRN Reason: Pain Hydromorphone HCl (Dilaudid) 1 mg IVPUSH ONETIME ONE Stop: 01/06/17 03:07 Last Admin: 01/06/17 03:14 Dose: 1 mg Hydromorphone HCl (Dilaudid) 1 mg IVPUSH Q2H PRN PRN Reason: Abdominal Pain Last Admin: 01/07/17 10:12 Dose: 1 mg Sodium Chloride (Normal Saline) 1,000 mls @ 999 mls/hr IV STAT ONE Stop: 01/06/17 02:05 Last Admin: 01/06/17 01:39 Dose: 999 mls/hr Sodium Chloride (Normal Saline) 1,000 mls @ 125 mls/hr IV STAT [facility] Last Admin: 01/06/17 03:12 Dose: 125 mls/hr Ciprofloxacin/Dextrose 400 mg/ (Premix) 200 mls @ 200 mls/hr IV NOW STA Stop: 01/06/17 04:15 Last Admin: 01/06/17 03:22 Dose: 200 mls/hr Piperacillin Sod/Tazobactam (Sod 3.375 gm/ Sodium Chloride) 50 mls @ 100 mls/ hr IV Q6H [facility] Last Admin: 01/07/17 09:37 Dose: 100 mls/hr Sodium Chloride (Normal Saline) 1,000 mls @ 125 mls/hr IV ASDIRECTED [facility] Last Admin: 01/07/17 05:33 Dose: 125 mls/hr Pantoprazole Sodium 40 mg/ (Sodium Chloride) 10 mls @ 300 mls/hr IVPUSH NOW ONE Stop: 01/06/17 19:47 Last Admin: 01/06/17 22:29 Dose: 300 mls/hr Iopamidol (Isovue Multipack-370 (76%)) 75 ml IVPUSH ONETIME STA Stop: 01/06/17 06:37 Last Admin: 01/06/17 06:37 Dose: 75 ml Ketorolac Tromethamine (Toradol) 30 mg IVPUSH ONETIME ONE Stop: 01/06/17 01:06 Last Admin: 01/06/17 03:02 Dose: Not Given Levofloxacin (Levaquin) 750 mg PO Q24H ONE Stop: 01/07/17 11:02 Last Admin: 01/07/17 12:02 Dose: 750 mg Levofloxacin (Levaquin) 750 mg PO Q24H [facility] Stop: 01/22/17 09:01 Lorazepam (Ativan) 1 mg PO BID PRN PRN Reason: Anxiety Metronidazole (Metronidazole) 500 mg PO Q6H [facility] Stop: 01/21/17 11:16 Last Admin: 01/07/17 12:02 Dose: 500 mg Morphine Sulfate (Morphine) 2 mg IVPUSH ONETIME ONE Stop: 01/06/17 01:13 Last Admin: 01/06/17 01:40 Dose: 2 mg Morphine Sulfate (Morphine) 2 mg IVPUSH ONETIME ONE Stop: 01/06/17 02:39 Last Admin: 01/06/17 02:42 Dose: 2 mg Morphine Sulfate (Morphine) 2 mg IVPUSH Q2H PRN PRN Reason: Abdominal Pain Omeprazole (Omeprazole) 40 mg PO DAILY [facility] Last Admin: 01/07/17 12:02 Dose: 40 mg Ondansetron HCl (Zofran) 8 mg IVPUSH ONETIME ONE Stop: 01/06/17 01:06 Last Admin: 01/06/17 03:02 Dose: Not Given Ondansetron HCl (Zofran) 8 mg IVPUSH STAT ONE Stop: 01/06/17 01:42 Last Admin: 01/06/17 01:42 Dose: 8 mg Ondansetron HCl (Zofran) 4 mg IVPUSH Q4H PRN PRN Reason: Nausea/Vomiting Oxycodone HCl (Oxycodone) 5 mg PO Q6H PRN PRN Reason: Abdominal Pain Last Admin: 01/07/17 13:25 Dose: 5 mg Oxycodone HCl (Oxycodone) 5 mg PO ONETIME ONE Stop: 01/07/17 13:59 Last Admin: 01/07/17 14:33 Dose: 5 mg Oxycodone HCl (Oxycodone) 5 mg PO Q4H PRN PRN Reason: Abdominal Pain - Plan Plan:: January 07, 2017: The patient was concerned about his overall treatment. He had been conversing with his physician in [place] and who reportedly said that his treatment here was inappropriate. The patient is also said that he would like to see his own surgeon in [place] and as a result of this the patient was discharged AGAINST MEDICAL ADVICE. I was present with the resident during history and physical examination. I've discussed the case with the resident and agree with the findings as documented in the resident's note.
[2017-01-07] MEDS ORDERED: oxyCODONE 5 MG Tab PO ONE (13:58)
[2017-01-07] MEDS ORDERED: Acetaminophen 325 MG Tab PO PRN (15:00)
[2017-01-07 17:14] VITALS: BP 156/79
[2017-01-08] MEDS ORDERED: Levofloxacin 500 MG Tab PO SCH (09:00)
== END 2017-01-07 17:05 | disposition left against medical advice (07) | DRG 379 ==
LOC: MW.ED 01:01 → MW.MS 03:11
PROVIDERS: ADMIT Internal Medicine; ATTEND Internal Medicine
DX: K57.33 Diverticulitis of large intestine without perforation or abscess with bleeding (principal); D72.829 Elevated white blood cell count, unspecified; F41.9 Anxiety disorder, unspecified; Z79.899 Other long term (current) drug therapy
CPT/HCPCS: 36415; 74178; 74178-26; 80048; 80053; 81001; 82150; 83690; 84484; 85025; 87040; 93005; 96361; 96374; 96375; 96376; 99285; 99285-25; A9270-GY; C9113; J0744; J1170; J2270; J2405; J2543; J7040; J7050; Q9967